=== PATIENT | female | born 1965 | race Caucasian/White ===

== ENCOUNTER 2023-07-25 13:36 | Emergency (ER) | payer OTHER | END 2023-07-25 14:20 | disposition home or self-care (01) | LOC: DL.ED 13:36 | DX: M25.522 Pain in left elbow (principal); W00.9XXA Unspecified fall due to ice and snow, initial encounter | CPT/HCPCS: 99282; 99283 ==

== ENCOUNTER 2024-10-13 20:09 | Emergency (ER) | payer OTHER | END 2024-10-13 21:01 | disposition home or self-care (01) | LOC: DL.ED 20:09 | DX: S90.111A Contusion of right great toe without damage to nail, initial encounter (principal); W01.0XXA Fall on same level from slipping, tripping and stumbling without subsequent striking against object, initial encounter; Y93.89 Activity, other specified; Y99.0 Civilian activity done for income or pay | CPT/HCPCS: 73630-RT; 99282; 99283 ==